=== PATIENT | male | born 1995 | race Caucasian/White ===

== ENCOUNTER → 2017-08-09 10:44 | Outpatient (CLI) | payer OTHER, SELFPAY ==
--- NOTE | 2017-08-09 10:52 | RAD_ITS ---
STUDY: X-RAY CHEST REASON FOR EXAM: Male, 21 years old. Chest pain. Difficulty breathing. TECHNIQUE: PA and lateral views of the chest. COMPARISON: None. FINDINGS: The lungs are clear and expanded. There is no demonstrated pleural abnormality. Normal size heart. Normal mediastinum and xavi. Normal visualized pulmonary arteries. Normal visualized aortic arch and descending thoracic aorta. Normal visualized thoracic spine. Normal visualized ribs, clavicles, and shoulders. There is no demonstrated abnormality of the visualized soft tissue structures of the upper abdomen. RAD/Chest PA and Lateral IMPRESSION: Normal x-ray examination of the chest. Electronically Signed: Milton Uribe MD at 11:12 EST Tel [phone], Service support ,
== END ==
PROVIDERS: Family Provider Pediatrics; PCP Pediatrics; Visit Provider Pediatrics
DX: J18.9 Pneumonia, unspecified organism (principal)
CPT/HCPCS: 71046

== ENCOUNTER 2018-08-25 13:55 | Emergency (ER) | payer OTHER, SELFPAY ==
[2018-08-25 13:56] VITALS: BP 158/93; PULSE 97; RESP 16; TEMP 37.2; O2SAT 97
[2018-08-25 16:01] VITALS: BP 141/78; PULSE 72; RESP 16; O2SAT 98
--- NOTE | 2018-08-25 16:26 | NURSING ---
DRESSING PLACED TO CHIN - NS SOAKED 4X4 WITH DRY 4X4S PLACED ON TOP
--- NOTE | 2018-08-25 16:38 | ED.VIS.GEN ---
History of Present Illness Chief Complaint: Laceration Informant: Patient, Family Onset: Today - JPTA - onset around 1300 today Context: Sudden Onset - football cleat vs. face Timing: Continuous Quality: sore Location: face/chin Current Severity: Mild Maximum Severity: Moderate Worsened by: manipulation Relieved by: leaving it alone Associated Symptoms: none Narrative: Last tetanus 3 years ago. Patient sustained this injury from a cleat from a football shoe. Mom and patient are requesting plastic surgery for the primary repair at this time. Past Medical History - Allergies and Home Meds Allergies/Adverse Reactions: Allergies No Known Allergies Allergy (Verified 08/25/18 13:58) Primary Care Physician: Rosalinda Acosta MD [Primary Care Provider] - Smoking Status: Never smoker Review of Systems Skin: Reports: Wounds - facial laceration Neurological: Denies: Headache, Weakness, Numbness Physical Exam Vital Signs/Narrative: Vital Signs Temp Pulse Resp BP Pulse Ox 08/25/18 16:01 72 16 141/78 H 98 08/25/18 13:56 99.0 F 97 16 158/93 H 97 General: Well nourished, Well developed, No Acute Distress Head: Normocephalic, Trauma - facial, otherwise none Eyes: Perrl, EOMI ENT: Moist mucous membranes, No rhinorrhea, - - linear, full thickness 6cm laceration to lower face/mandible, progressing to underside of chin, right side. no intraoral component/injury. Neck: Supple, Nontender Skin: Normal color, No rash, Trauma - 6cm full thickness laceration to right lower face. see above. Neurological: Alert, Oriented x3, Cranial nerves II-XII grossly intact, Normal Strength, Normal Sensation, - - GCS 15 Psychological: Normal affect, Normal Mood Diagnostic/Tx/Re-eval - Medical Decision Making Although we have a plastic surgeon in [place], he is not available today, Sunday. I discussed this with mom and patient and offered them the facilitation of transfer to a tertiary care center with plastics ability, and they want this. Discussed with [facility], where plastics is available, not accepted by the ER physician without discussing with plastics, which I did. They are not aware of the patient, but just prior to talking with plastics, the mother and patient are wanting discharged because they have a contacted another hospital that they plan on going to and do not want help with transfer. They are refusing to have a primary repair done by us at this time. The laceration was gently cleansed and dressed. I did discuss with them thoroughly my opinion on the differences of emergency department versus plastics primary repair, and the fact that both will result in likely scarring. They understand all of this and still declined repair at this time. ED Disposition - Plan for ED Patient: Disposition: Home or Assisted Living Diagnosis: Facial laceration Instructions: ED Scar Tips to Minimize, ED Laceration All Referrals: Room, Emergency [Other] (please return for primary laceration repair if you change your mind)
== END 2018-08-25 17:02 | disposition home or self-care (01) ==
PROVIDERS: Emergency Provider Emergency Medicine; Family Provider Pediatrics; PCP Pediatrics
DX: S01.81XA Laceration without foreign body of other part of head, initial encounter (principal); W21.31XA Struck by shoe cleats, initial encounter; Y93.61 Activity, american tackle football; Y92.9 Unspecified place or not applicable; Y99.9 Unspecified external cause status
CPT/HCPCS: 99282